=== PATIENT | female | born 2000 ===

== ENCOUNTER 2025-01-19 02:56 | Emergency (ER) | payer MEDICAID, SELFPAY ==
[2025-01-19] VITALS (23 sets, daily range): BP systolic 91–118; BP diastolic 53–76; PULSE 67–125; RESP 14–26; TEMP 36.6–37.1; O2SAT 95–100; BMI 20.2
--- NOTE | 2025-01-19 03:11 | ED_ITS ---
HPI - Psych General Chief Complaint: Psychiatric Symptoms Stated Complaint: Erratic behavior/ nonverbal in PD cust Time Seen by Provider: 01/19/25 03:04 Source: EMS Mode of arrival: EMS Limitations: altered mental status History of Present Illness ED Provider: Dr. Dana Perez HPI Narrative: Patient comes to the emergency room in handcuffs and with EMS. According to EMS, PD. The patient was in a car in a parking lot. Per PD, the patient was acting erratically. When they got her of the car, patient was staring into space, not answering questions, acting very weird. When EMS arrived, the patient was giggling and walked right into the stretcher. When patient arrived she started screaming and not answering any questions. According to PD, patient did not seem to be injured, there was no damage to the car. Related Data Home Medications ?Medication ?Instructions ?Recorded ?Confirmed No Known Home Meds 01/19/25 01/19/25 Allergies Allergy/AdvReac Type Severity Reaction Status Date / Time Unable to Assess Allergy Unverified 01/19/25 03:40 Review of Systems 2 Review of Systems: Yes Unobtainable due to mental status [facility] Past Medical History Source: unable to obtain Social History Social History Advance Directives: No Advance Directives Information Provided: Yes Do you have a plan to hurt others: No Plan Physical Exam 2 Vital Signs: Vital Signs: Last Vital Signs Temp 97.4 F 01/22/25 08:21 Pulse 79 01/22/25 10:35 Resp 16 01/22/25 10:35 BP 97/64 01/22/25 10:20 Pulse Ox 100 01/22/25 10:35 O2 Del Method Room Air 01/22/25 10:35 BMI result Body Mass Index 20.2 Const: Other: Appearance: Alert. Screaming, not answering any questions. Arrives without shoes Eyes: Pupils equal, round and reactive to light. ENT: Pharynx normal. Neck: Normal inspection. Neck supple. No lymph nodes noted. No crepitus CVS: Normal heart rate and rhythm. Pulses normal. Normal S1 and S2 Respiratory: No respiratory distress. Breath sounds normal. No Wheezing. No rales Abdomen: Soft and nontender. No rigidity. No distention. Skin: Skin warm and dry. Normal skin color. Normal skin turgor. Extremities: No lower extremity edema. No Lacerations. No Rash Neuro: Moving all extremities. Roughly cranial nerves 2-12 intact, Unable to participating cranial nerve assessment. Psych: Agitated screaming, altered mental status, not answering questions Course Course Course Narrative: Patient is acting erratic, not answering any questions, unknown history. Patient very combative. For patients and staff safety patient will be chemically restrained. Patient receiving 5 mg IM diazepam, 50 mg diphenhydramine, 5 mg IM Haldol Reevaluation(s) Reevaluation #1: 01/19/2025 15:40 DR. Saravia's progress note. Patient now is calm, cooperative, AAO x3, care team evaluation is appreciated patient voluntarily agreed to inpatient psych admission, start physician observation. Bed search is underway. Time: 13:00 Reevaluation #2: 01/20/2025 10;00, DR. Saravia's Progress note: VSS, labs were reviewed within baseline, care team input is appreciated, patient is section 12 now and bed search is underway, will continue with physician observation. Time: 10:00 Reevaluation #3: Time: 09:44 Date: 01/21/25 Provider: Carmen Power DO Patient in physician observation for psychiatric evaluation.? No acute events reported overnight. No current complaints. VS stable.? Patient is in bed search status. Will continue to monitor. 1102am 01/21/25 patient aggressive and agitated refusing PO medications cannot de-escalate IM medications ordered Time: 12:36 Date: 01/21/25 Provider: Carmen Power DO Physician observation ended at 1236pm.Patient to be admitted as inpatient to psychiatry. Medications Administered Discontinued Medications Generic Name Dose Route Start Last Admin Trade Name Freq PRN Reason Stop Dose Admin Diazepam 5 mg 01/19/25 03:04 01/19/25 03:21 Diazepam 10 Mg/2 Ml Cartridge IM 01/19/25 03:05 5 mg STAT STA Administration Diazepam 5 mg 01/21/25 11:01 01/21/25 11:05 Diazepam 10 Mg/2 Ml Cartridge IM 01/21/25 11:02 5 mg STAT STA Administration Diphenhydramine HCl 50 mg 01/19/25 03:04 01/19/25 03:21 Diphenhydramine Hcl 50 Mg/Ml Vial IM 01/19/25 03:05 50 mg ONCE ONE Administration Diphenhydramine HCl 50 mg 01/21/25 02:07 01/21/25 03:10 Diphenhydramine Hcl 25 Mg Capsule PO 01/21/25 02:08 Not Given ONCE ONE Diphenhydramine HCl 50 mg 01/22/25 09:30 01/22/25 09:50 Diphenhydramine Hcl 50 Mg/Ml Vial IM 01/22/25 09:31 50 mg ONCE ONE Administration Haloperidol Lactate 5 mg 01/19/25 03:04 01/19/25 03:20 Haloperidol Lactate 5 Mg/Ml Vial IM 01/19/25 03:05 5 mg STAT STA Administration Haloperidol Lactate 5 mg 01/22/25 09:30 01/22/25 09:50 Haloperidol Lactate 5 Mg/Ml Vial IM 01/22/25 09:31 5 mg ONCE ONE Administration Lorazepam 1 mg 01/21/25 04:59 01/21/25 05:09 Lorazepam 1 Mg Tablet PO 01/21/25 05:00 1 mg ONCE ONE Administration Lorazepam 2 mg 01/21/25 10:20 01/21/25 10:42 Lorazepam 1 Mg Tablet PO 01/21/25 10:21 Not Given ONCE ONE Lorazepam 2 mg 01/21/25 15:17 01/21/25 22:21 Lorazepam 1 Mg Tablet PO 01/21/25 15:18 Not Given ONCE ONE Midazolam HCl 2 mg 01/22/25 09:31 01/22/25 09:50 Midazolam Hcl 2 Mg/2 Ml Vial IM 01/22/25 09:32 2 mg ONCE ONE Administration Olanzapine 5 mg 01/21/25 05:00 01/21/25 05:09 Olanzapine 5 Mg Tablet PO 01/21/25 05:01 5 mg ONCE ONE Administration Olanzapine 10 mg 01/21/25 11:01 01/21/25 11:05 Olanzapine 10 Mg Vial IM 01/21/25 11:02 10 mg STAT STA Administration Medical Decision Making Medical Decision Making MDM Narrative: Patient is a 44-year-old female called by PD for erratic driving upon arrival they found the patient to be parked on the side of the road with odd behavior. Patient was kept in the emergency for the last 24-48 hours was given multiple doses of medication including this morning when patient got agitated yelling and screaming. After the last dose of Haldol Versed and Benadryl per orally 11:00 patient was eventually seen by psychiatry and also by the care team. Full felt that the patient is safe to go home. Outpatient plan was discussed with patient. I went back and re-evaluated the patient she is not suicidal not homicidal has no acute distress wants to go home as for side wants to go to her friend's house. In stable condition. Differential Diagnosis Differential Diagnoses: The differential diagnosis associated with the presentation includes (Polysubstance abuse, alcohol abuse, schizophrenia, bipolar disorder) Admission/Observation Consideration of admission/observation: Escalation of care including admission/observation considered (Patient has been chemically restrained for her own safety and staff's safety as well.) Lab Data MDM Lab Attestation statement: I reviewed the patient's lab results. 01/19/25 06:45 01/19/25 06:45 Labs: Lab Results 01/19/25 01/19/25 Range/Units 06:45 14:10 WBC 4.9 (4.8-10.8) X10*3/uL RBC 4.61 (4.20-5.50) X10*6/uL Hgb 12.8 (12.0-16.0) g/dl Hct 37.2 (37.0-47.0) % MCV 80.7 (80.0-98.0) fL MCH 27.8 (27.0-33.0) pg MCHC 34.4 (31.0-35.0) g/dl RDW 13.9 (11.0-16.0) % Plt Count 197 (160-400) X10*3/uL MPV 11.6 (9.4-12.3) fL Immature Gran % (Auto) 0.2 (0.0-0.4) % Neut % (Auto) 63.8 (45-73) % Lymph % (Auto) 25.0 (20-40) % [place] % (Auto) 10.4 (2-11) % Eos % (Auto) 0.2 (0-4) % Baso % (Auto) 0.4 (0-2) % Lymph # (Auto) 1.2 (1.2-4.9) X10*3/uL [place] # (Auto) 0.5 (0.1-1.2) X10*3/uL Eos # (Auto) 0.0 (0.0-0.4) X10*3/uL Baso # (Auto) 0.0 (0.0-0.2) X10*3/uL Abs Immat Gran (auto) 0.01 (0.00-0.03) X10*3/uL Absolute Neuts (auto) 3.1 (2.0-8.3) x10*3/uL Absolute Nucleated RBC 0.000 (0.0-0.012) X10*3/uL Nucleated RBC % (auto) 0.0 (0.0-0.2) /100WBC Sodium 138 (135-145) mmol/L Potassium 3.3 (3.3-5.1) mmol/L Chloride 107 (96-108) mmol/L Carbon Dioxide 21 L (22-29) mmol/L Anion Gap 13 (12-20) BUN 14 (9-16) mg/dL Creatinine 0.72 (0.5-1.4) mg/dL Estim Creat Clear Calc 106.3 Estimated GFR > 60 Random Glucose 93 (60-115) mg/dL Calcium 9.5 (8.4-10.2) mg/dL Magnesium 2.2 (1.6-2.6) mg/dL Total Bilirubin 0.7 (0.0-1.0) mg/dL Direct Bilirubin 0.2 (0.0-0.5) mg/dL AST 31 (5-31) U/L ALT 15 (0-31) U/L Alkaline Phosphatase 72 (39-117) U/L Total Protein 7.7 (6.5-8.0) g/dL Albumin 4.7 (3.5-5.0) g/dL Beta HCG, Quant < 2 mIU/mL Urine Color Dark Yellow Urine Appearance Cloudy Urine pH 6.0 (5.0-9.0) Ur Specific [place] >= 1.030 H (1.005-1.025) Urine Protein 30 (1+) H (Neg-Trace) mg/dL Urine Glucose (UA) Negative (Negative) mg/dL Urine Ketones 80 (Negative) mg/dL Urine Blood Negative (Negative) Urine Nitrite Negative (Negative) Ur Leukocyte Esterase Small (1+) H (Negative) Urine RBC 0-2 (0-2) /HPF Urine WBC 0-5 (0-5) /HPF Ur Squamous Epith Cells 11-20 (0-2) /HPF Urine Bacteria 1+ (None Seen) Hyaline Casts 0-2 (0-2) /LPF Urine Opiates Screen Not Detected (Not Detect) Ur Buprenorphine Scrn Not Detected (Not Detect) ng/mL Ur Oxycodone Screen Not Detected (Not Detect) ng/mL Urine Methadone Screen Not Detected (Not Detect) ng/mL Urine Fentanyl Screen Not Detected (Not Detect) Ur Barbiturates Screen Not Detected (Not Detect) Ur Phencyclidine Scrn Not Detected (Not Detect) Ur Amphetamines Screen Not Detected (Not Detect) U Benzodiazepines Scrn POSITIVE H (Not Detect) Urine Cocaine Screen Not Detected (Not Detect) U Marijuana (THC) Screen POSITIVE H (Not Detect) Ethyl Alcohol < 10 mg/dL Social Determinants Patient?s care significantly limited by Social Determinants of Health including: Alcoholism and drug addiction in family and Problems related to primary support group Critical Care Time Critical Care Time Critical Care Time: Yes Total Critical Care Time: 60 Attestation: I have personally provided critical care time. Time includes review of lab data, radiology results, discussion with consultants, and monitoring for potential decompensation. Intervention performed as documented. Discharge Plan Discharge Clinical Impression: Agitation Patient Disposition: Home, Self-Care Instructions: Anxiety (ED) Prescriptions: No Action No Known Home Meds Referrals: Physician,None [Primary Care Provider, Medical] Referral Note: Please follow-up as per care team Interventions: [place]-Suicide Risk Severity Scale Last Done: 01/22/25 07:52 Admission Worksheet (ED) Last Done: 01/21/25 13:19 Print Language: Kazakh
[2025-01-19] MEDS: diazePAM 10 MG/2 ML CARTRIDGE 5 MG IM (03:21)
--- NOTE | 2025-01-19 03:46 | PC.NURSE ---
[place] Suicide Screening omitted at this time as the pt is not currently in a state to answer questions appropriately as she either will not answer/respond to questions or respond by intermittently yelling out. pt with sitter at bedside due to hard restraint use. VSS, pt calm at this time, resting and plan is to trial restraint removal
--- NOTE | 2025-01-19 04:57 | MHC.EDTECH ---
Unable to do a full changeover on patient, patient was quickly medicated and phyiscally restrained upon arrival. Will attempt changeover when pt is alert and cooperative.
--- NOTE | 2025-01-19 05:01 | PC.NURSE ---
Unable to asses pt for si/ hi, alcohol or substance abuse including CIWA due to pt non verbal at the time.
--- NOTE | 2025-01-19 05:42 | MHC.EDTECH ---
patient belongings are secured on shelf 2.
--- NOTE | 2025-01-19 06:00 | PC.NURSE ---
pt arrived via ems and pd. pt acting erratic spitting aggressive with staff pt medicated according to mar and four point restraints placed @ 0320. sitter in placed restrained discontinued @ 0505. pt sleeping sitter remains in place
[2025-01-19 06:51] LABS: MANUAL DIFF FLAG NO
[2025-01-19 07:01] LABS: Hematocrit 37.2 % (37.0-47.0); Hemoglobin 12.8 g/dl (12.0-16.0); Imm Gran Abs Auto 0.01 X10*3/uL (0.00-0.03); Imm Gran Pct Auto 0.2 % (0.0-0.4); Lymphocytes Absolute Auto 1.2 X10*3/uL (1.2-4.9); Mean Corpuscular HGB Conc 34.4 g/dl (31.0-35.0); Mean Corpuscular Hemoglobin 27.8 pg (27.0-33.0); Mean Corpuscular Volume 80.7 fL (80.0-98.0); NRBC Abs Auto 0.000 X10*3/uL (0.0-0.012); NRBC Pct Auto 0.0 /100WBC (0.0-0.2); Platelet Count 197 X10*3/uL (160-400); Red Blood Count 4.61 X10*6/uL (4.20-5.50); White Blood Count 4.9 X10*3/uL (4.8-10.8)
[2025-01-19 07:22] LABS: Alanine Aminotransferase 15 U/L (0-31); Albumin Level 4.7 g/dL (3.5-5.0); Alkaline Phosphatase 72 U/L (39-117); Anion Gap 13 (12-20); Aspartate Amino Transferase 31 U/L (5-31); Blood Urea Nitrogen 14 mg/dL (9-16); Calcium 9.5 mg/dL (8.4-10.2); Carbon Dioxide 21 mmol/L (22-29); Chloride 107 mmol/L (96-108); Creatinine Clr Calc Pharmacy 106.3; Estimated Glomerular Filt Rate > 60; Magnesium 2.2 mg/dL (1.6-2.6); Potassium 3.3 mmol/L (3.3-5.1); Sodium 138 mmol/L (135-145); Total Protein 7.7 g/dL (6.5-8.0)
--- NOTE | 2025-01-19 07:32 | PC.NURSE ---
pt sleeping, woke to stimulus, refusing to engage with staff- rolled over and covered her face with the covers. oil field worker intact nsr on monitor, vitals stable- bp soft but pt has been sleeping and was previously medicated. rr equal/non labored, call escamilla within reach, plan of care ongoing
--- NOTE | 2025-01-19 12:00 | PC.NURSE ---
pt continue to sleep, rr equal/non labored, cardica monitor nsr, call escamilla within reach, plan of care ongoing
--- OUTSIDE RECORDS SUMMARY | 2025-01-19 12:32 | XMS_ITS ---
Author Name [facility] Organization Unknown Encounters Encounter Type Encounter Reason Primary Diagnosis Location Date Ambulatory [facility], [facility]. ([facility]) 08/01/2024
[2025-01-19 14:17] LABS: Appearance Urine Cloudy; Glucose Urine UA Negative (Negative); PH 6.0 (5.0-9.0); Specific Gravity - Urine >= 1.030 (1.005-1.025); UMIC TRIGGER UACC YES
[2025-01-19 14:26] LABS: UACC Culture Trigger YES
[2025-01-19 14:43] LABS: Cannabinoid Screen Urine POSITIVE (Not Detect)
--- NOTE | 2025-01-19 17:09 | MHC.CARE ---
Pt was assessed by the CARE team and found in need of IPLOC for mood stabilization and medication evaluation, Pt is aware of disposition and agreeable. Pt is on section 12 for safety, while a bed search is completed, Pt will be reassessed tomorrow if her bed search is exhausted.
--- NOTE | 2025-01-19 17:53 | PC.NURSE ---
pt states that the only medication she takes is marijuana. She states it is her medication and she needs it. Denies taking any other medications
--- NOTE | 2025-01-19 20:27 | PC.NURSE ---
patiet minimally visible in milieu mostly mute, asking where restroom is but seems in no acute distress. will continue to monitor for safety.
[2025-01-20 00:56] VITALS: BP 103/65; PULSE 75; RESP 18; TEMP 37.2; O2SAT 100
--- NOTE | 2025-01-20 06:24 | PC.NURSE ---
periodically restless
--- NOTE | 2025-01-20 07:27 | PC.NURSE ---
Assumed care of patient at 0645, patient appears to be in no apparent distress this am, calm and cooperative, wandering around BH pod. pt did take shower this am. Continue plan of care for IPLOC
--- NOTE | 2025-01-20 08:00 | PHA.MEDREC ---
Pharmacy Consult ? Medication Reconciliation Pharmacy has completed the medication reconciliation. No known home meds per patient/nursing
[2025-01-20 09:27] VITALS: PULSE 95; RESP 14; O2SAT 99
--- NOTE | 2025-01-20 09:28 | PC.NURSE ---
Pt exhibiting mild agitation after being told she cannot leave. Pacing around BH pod, entered another patient's room to take their food. pt was redirected verbally
[2025-01-20 14:00] VITALS: PULSE 87; RESP 16; O2SAT 99
--- NOTE | 2025-01-20 16:29 | PC.NURSE ---
Patient appears to be sleeping, respirations even and unlabored, no apparent distress
[2025-01-20 19:43] VITALS: BP 127/75; PULSE 88; RESP 18; TEMP 37.3; O2SAT 99
--- NOTE | 2025-01-20 19:46 | PC.NURSE ---
upon arrival to unit patient appeared in no acute distress, mildly restless, washing face in sink more able to express things verbally today than yesterday, still exiting room with head covered like a turban responded to inquiries from staff
--- NOTE | 2025-01-21 01:12 | PC.NURSE ---
patient has been restless, requested med to help sleep from provider
--- NOTE | 2025-01-21 05:09 | PC.NURSE ---
increasing restlessness resulted in pursuit of addl meds
--- NOTE | 2025-01-21 05:56 | PC.NURSE ---
discovered client likes music /earphones
--- NOTE | 2025-01-21 06:42 | PC.NURSE ---
turned in hedhones to rest
[2025-01-21 07:30] VITALS: BP 102/76; PULSE 78; RESP 15; TEMP 37; O2SAT 99
--- NOTE | 2025-01-21 10:39 | PC.NURSE ---
patient found to be pacing throughout the milieu in tears/restless. difficult to reorient/de-escalate at first. patient then found to be standing on chair in milieu. patient educated on safety. willingly assisted back to ground without difficulty. provider notified/aware. medication ordered. patient refusing PO medication administration stating, this medication is poison. i am already sick. i am not going to take medication that is going to make me more sick. get out of my face. you are a bitch. medication returned to pyxis. patient more directable at this time. plan of care ongoing.
[2025-01-21] MEDS: diazePAM 10 MG/2 ML CARTRIDGE 5 MG IM (11:05)
[2025-01-21] MEDS: OLANZapine 10 MG VIAL IM (11:05)
[2025-01-21 12:47] VITALS: BP 102/75; PULSE 70; RESP 16; TEMP 37.1; O2SAT 97
--- NOTE | 2025-01-21 15:17 | PC.NURSE ---
Pt up and ambulating about the pod, restless and tearful. Requesting to speak to regarding admission. Pt had to be reminded about the process and redirected to room. made aware, new orders for prn
[2025-01-21 20:39] VITALS: BP 111/68; PULSE 98; RESP 18; TEMP 36.6; O2SAT 98
[2025-01-22] VITALS (7 sets, daily range): BP systolic 95–124; BP diastolic 61–71; PULSE 67–82; RESP 14–18; TEMP 36.3–36.9; O2SAT 95–100
--- NOTE | 2025-01-22 03:41 | PC.NURSE ---
Took report from off-going RN at 0115 hours. Pt has been here for 3 days, came in on 01/19 at 0346 hours. Pt is a 24 y/o female who presented to the ED for evaluation of erratic behavior, presenting non-verbal. On arrival here pt was combative requiring physical and medication restraints. Pt is arousable with verbal stimuli. Pt is presently calm and cooperative and no acute distress is observed. Pt verbalizes any needs. Tech reports pt has been increasingly disorganized this shift. Pt is on a section 12 and a bed search is ongoing. Safety check continue every 15 min. Will continue to monitor for any changes.
--- NOTE | 2025-01-22 05:33 | PC.NURSE ---
Pt has been intermittently sleeping throughout the shift. OOB as needed/desired asking for water. Pt is calm and cooperative at this time. Needs to be reminded to cover up before leaving her room, does wrap a towel/blanket around hair. Most recently OOB asking to listen to music and returned to room, reports she can't sleep anymore. No other needs/wants verbalized at this time. Safety checks will continue every 15 min. Will continue to monitor for any changes.
--- NOTE | 2025-01-22 07:54 | PC.NURSE ---
Assumed care of patient at 0645, patient appears to be in no apparent distress this am, calm and cooperative, ambulating around BH pod with steady gait, offering no complaints to this RN, listening to music with pod issued headphones. Continue plan of care for IPLOC
--- NOTE | 2025-01-22 10:17 | PC.NURSE ---
RE: chemical restraint At approximately 0940, patient began reporting feeling upset that other individuals are being discharged and moved upstairs but she is not. She reports that she is frustrated that she is not getting treatment and feels very isolated here in the pod. this RN attempted to explain to patient that she cannot be discharged and is continuing to meet inpatient level of care. pt verbally acknowledged this and stated I know but no one is letting me upstairs . this RN educated patient that she needs to remain in behavioral control to be appropriate for admission which pt again verbally acknowledged. Pt began crying and then threw herself at the wall in BH 4, she began slamming her fists against the wall as well as the TV. was called to assist with de-escalation. Security Talat sat and spoke with patient as well as Security Jony. pt did calm down quite a bit. MD Turner came to the bedside to evaluate patient. Pt willingly took IM injections in bilateral deltoids without a physical hold. Pt remained tearful. Pt has since laid down and is offering no complaints at this time
--- NOTE | 2025-01-22 14:38 | PC.NURSE ---
Pt expressing her frustration about being kept in the BH pod against her will with no treatment in place. This RN validated patient's feelings. Pt reports to this RN all I do is sit here and wait, everyone else is going places but me, it's not fair . Once again this RN validated pts feelings. pt states what good are you doing for me, I am stuck in a small area, no one is coming to talk with me .
--- NOTE | 2025-01-22 15:21 | PC.NURSE ---
pt currently speaking with instrument mechanics supervisor Tamika
--- NOTE | 2025-01-22 15:51 | PM.PSYCN ---
History of Present Illness Date of Service: 01/22/2025 Chief Complaint: Psychosis Reason for Consult: psychosis Requesting physician: Tierra Turner Discussed with referring provider: Yes Sources of Information: patient interviewed, chart reviewed and crisis/core team assessment reviewed HPI Narrative: Ms. Spenser Renteria is a 24 year-old woman who was brought via EMS after she was found in parking lot. Diagnostics Vital Signs (24Hr): Vital Signs - 24 hr 01/21/25 20:39 01/22/25 07:53 01/22/25 08:21 Temperature 97.8 F 98.0 F 97.4 F Pulse Rate 98 67 81 Respiratory Rate 18 16 18 Blood Pressure 111/68 124/61 96/65 Pulse Oximetry 98 99 95 Oxygen Delivery Method Room Air Room Air Room Air 01/22/25 09:50 01/22/25 10:05 01/22/25 10:20 Temperature Pulse Rate 82 76 Respiratory Rate 16 14 16 Blood Pressure 95/71 97/64 Pulse Oximetry 100 99 Oxygen Delivery Method Room Air Room Air 01/22/25 10:35 Temperature Pulse Rate 79 Respiratory Rate 16 Blood Pressure Pulse Oximetry 100 Oxygen Delivery Method Room Air BMI result Body Mass Index 20.2 Labs 01/19/25 06:45 01/19/25 06:45 Mental Status Exam Mental Status Exam Narrative: Appearance: wearing hospital gown, fair hygiene, in NAD behavior: cooperative Psychomotor:no agitation or retardation noted Speech: clear, regular rate/rhythm/volume, spontaneous TP:more linear TC: hearing voices on and off Delusions: less ideas of being interconnected and no overt paranoid ideas Insight/judgment: improving after medications Memory/cog: alert, oriented x 3. seems improved from day of admission. Medications Allergies Allergies Allergy/AdvReac Type Severity Reaction Status Date / Time Unable to Assess Allergy Unverified 01/19/25 03:40 Assessment & Plan Assessment & Plan (1) Psychosis: Status: Acute Code(s): F29 - Unspecified psychosis not due to a substance or known physiological condition Plan Ms. Spenser Renteria presents as less agitated, less signs of psychosis and delusions. She also presents with increase insight into situation stating that she was hearing voices, which she reports she it has happened in the past on and off. She does report cannabis use exacerbating them. We discussed possibility to cannabis induced versus sign of underlying psychiatric illness that may need ongoing treatment. She is in agreement to try low dose of risperidone 0.5mg po BID. She agrees to referral to [facility] and [facility] for PCP. She met with insurance application investigator to apply for health insurance. At this time, pt presents as much more organized, coherent, able to show increase insight into event leading to this admission. No SI/HI. No imminent safety concerns in terms of acute psychiatric symptoms as it appears that medications she received while in the ED have been very beneficial. PLAN 1. Pt presents as less agitates, more clear and logical in her thinking. Pt has improved to the point that she no longer meets criteria especially for involuntary admission as no imminent safety concerns in terms of harm to self or others nor gravely disable. 2. sent rx risperidone 0.5mg po BID. Total time managing care of this patient today ____ minutes.
== END 2025-01-22 16:32 | disposition home or self-care (01) ==
LOC: HO.ED 01-21 07:27 → HO.PM5 01-21 12:37 → HO.ED 01-22 16:21
PROVIDERS: Emergency Provider Emergency Medicine
DX: F29 Unspecified psychosis not due to a substance or known physiological condition (principal); R45.1 Restlessness and agitation
CPT/HCPCS: 36415; 80048; 80076; 80307; 81001; 83735; 84702; 85025; 87086; 96372; 99285; J1200; J1630; J2250; J2359; J3360; S9485

== ENCOUNTER → 2025-01-19 12:27 | Outpatient (BNV) | payer MEDICAID, SELFPAY | PROVIDERS: Emergency Provider Emergency Medicine; Visit Provider Social Worker | DX: F29 Unspecified psychosis not due to a substance or known physiological condition (principal) | CPT/HCPCS: 99499 ==